=== PATIENT | female | born 1970 | race American Indian/Alaskan Native ===

== ENCOUNTER 2018-03-03 08:32 | Observation (INO) | payer BC ==
[2018-03-01 09:17] LABS: Eosinophils # (Auto) 0.1 K/mm3 (0.0-0.4); Eosinophils % (Auto) 2.1 % (0.0-4.3); Hematocrit 34.6 % (30.3-42.9); Hemoglobin 11.4 gm/dl (10.1-14.3); Lymphocytes # (Auto) 1.9 K/mm3 (1.2-5.4); Mean Corpuscular HGB Conc 33 % (30-34); Mean Corpuscular Hemoglobin 28 pg (28-32); Mean Corpuscular Volume 85 fl (79-97); Monocytes # (Auto) 0.4 K/mm3 (0.0-0.8); Monocytes % (Auto) 8.4 % (0.0-7.3); Platelet Count 267 K/mm3 (140-440); Red Blood Count 4.05 M/mm3 (3.65-5.03); Red Cell Distribution Width 14.8 % (13.2-15.2)
--- NOTE | 2018-03-01 12:22 | Anesthesia Consultation ---
Anesthesia Consult and Med Hx Date of service: 03/01/18 - Airway Anesthetic Teeth Evaluation: Good ROM Head & Neck: Adequate Mental/Hyoid Distance: Adequate Mallampati Class: Class I Intubation Access Assessment: Good - Pulmonary Exam CTA: Yes - Cardiac Exam Cardiac Exam: RRR - Pre-Operative Health Status ASA Pre-Surgery Classification: ASA2 Proposed Anesthetic Plan: General - Pulmonary Hx Sleep Apnea: Yes - Central Nervous System Hx Psychiatric Problems: No - Other Systems Hx Cancer: No
--- NOTE | 2018-03-03 07:17 | Anesthesia Day of Surgery ---
Anesthesia Day of Surgery - Day of Surgery Patient Examined: Yes Patient H&P Reviewed: Yes Patient is NPO: Yes
[~2018-03-03 08:32] MED LIST: DILAUDID IV PRN; GELFOAM POWDER 1GM MM ONE; LACTATED RINGERS 1,000 ML IV SCH; MARCAINE 0.5% INFILTRATI NR; NEOSPORIN GU IR ONE; PEPCID IV NR; THROMBIN (BOVINE) TP ONE; VERSED IV NR; XYLOCAINE 1% 20 mL INFILTRATI NR
[2018-03-03] MEDS ORDERED: DECADRON ONE ×2 (09:21→11:32)
[2018-03-03] MEDS ORDERED: MARCAINE 0.5% 30 ML INFILTRATI ONE (09:21)
[2018-03-03] MEDS ORDERED: SUBLIMAZE IV ONE (09:30)
--- NOTE | 2018-03-03 09:50 | History and Physical Report ---
History of Present Illness Date of examination: 03/03/18 Date of admission: 03/03/2018 Chief complaint: dysfunctional uterine bleeding History of present illness: 47-year-old 001 with a history of dysfunctional uterine bleeding. Pelvic ultrasound was performed with findings of endometrial polyp and also suggestive of a 1 cm myoma. The patient reports worsening of her menses where she experiences heavy bleeding with the passage of clots. The patient also complains of having dysmenorrhea during her menses. She has elected to undergo definitive surgical management. Past History Past Medical History: other (right and) Past Surgical History: no surgical history Social history: - Obstetrical History : 1 Para: 1 Hx # Term Pregnancies: 1 Number of Pregnancies: 0 Spontaneous Abortions: 0 Induced : 0 Number of Living Children: 1 Medications and Allergies Home Medications Medication Instructions Recorded Confirmed Last Taken Type Ferrous Sulfate [Iron] 325 mg PO BID 02/26/18 03/03/18 03/01/18 History Multivitamin Tab [Multiple Vitamin 1 each PO QDAY 02/26/18 03/03/18 03/01/18 History TAB (Theragran)] Norgestimate-Ethinyl Estradiol 1 each PO DAILY 02/26/18 03/03/18 03/01/18 History [Tri-Sprintec Tablet] Active Meds: Active Medications Bupivacaine HCl (Marcaine 0.5%) 20 ml INFILTRATI PREOP NR Stop: 03/03/18 16:00 Famotidine (Pepcid) 20 mg IV PREOP NR Stop: 03/03/18 23:59 Last Admin: 03/03/18 09:20 Dose: 20 mg Hydromorphone HCl (Dilaudid) 0.5 mg IV Q10MIN PRN PRN Reason: Pain , Severe (7-10) Stop: 03/03/18 14:00 Lactated Ringer's (Lactated Ringers) 1,000 mls @ 100 mls/hr IV DIRECT JALEESA Last Admin: 03/03/18 08:50 Dose: 100 mls/hr Lidocaine (Xylocaine 1% 20 Ml) 10 ml INFILTRATI PREOP NR Stop: 03/03/18 23:59 Midazolam HCl (Versed) 2 mg IV PREOP NR Stop: 03/03/18 23:59 Last Admin: 03/03/18 09:27 Dose: 2 mg Review of Systems All systems: negative Constitutional: fatigue Genitourinary: vaginal bleeding, pelvic pain - Vital Signs Vital signs: Vital Signs Temp Pulse Resp BP 98.6 F 72 18 124/80 03/01/18 09:00 03/01/18 09:00 03/01/18 09:00 03/01/18 09:00 Temp Pulse Resp BP Pulse Ox 98.6 F 72 18 124/80 03/01/18 09:00 03/01/18 09:00 03/01/18 09:00 03/01/18 09:00 - Physical Exam Breasts: Positive: deferred Cardiovascular: Regular rate Lungs: Positive: Clear to auscultation Abdomen: Positive: normal appearance Results Result Diagrams: 03/01/18 09:12 All other labs normal. Assessment and Plan - Patient Problems (1) Dysfunctional uterine bleeding Current Visit: Yes Status: Acute Plan to address problem: The patient is scheduled for a Robotic hysterectomy and bilateral salpingectomy (2) Endometrial polyp Current Visit: Yes Status: Acute
[2018-03-03] MEDS ORDERED: MARCAINE 0.5% INFILTRATI NR (10:00)
[2018-03-03] MEDS ORDERED: ANCEF/STERILE WATER 2 GM/20 ML 2 GM/20 ML SYRINGE IV SCH (10:00)
[2018-03-03] MEDS ORDERED: DIPRIVAN 10 MG/ML IV ONE (10:19)
[2018-03-03] MEDS ORDERED: ZEMURON IV ONE (10:20)
[2018-03-03] MEDS ORDERED: XYLOCAINE MPF 2% ONE (10:20)
[2018-03-03] MEDS ORDERED: DILAUDID ONE (10:20)
[2018-03-03] MEDS ORDERED: INTRALIPID 20% 250 ML IV ONE (10:24)
[2018-03-03] MEDS ORDERED: LACTATED RINGERS 1,000 ML ONE (11:00)
[2018-03-03] MEDS ORDERED: NEO SYNEPHRINE/NS Syringe(OR USE) IV ONE (11:09)
[2018-03-03] MEDS ORDERED: NACL 0.9% IR ONE ×2 (11:13)
[2018-03-03] MEDS ORDERED: NEOSPORIN GU IR ONE (11:13)
[2018-03-03] MEDS ORDERED: WATER FOR IRRIG STERILE IR ONE (11:13)
[2018-03-03] MEDS ORDERED: THROMBIN (BOVINE) TP ONE (11:14)
[2018-03-03] MEDS ORDERED: GELFOAM POWDER 1GM MM ONE (11:14)
[2018-03-03] MEDS ORDERED: ROBINUL ONE (11:26)
[2018-03-03] MEDS ORDERED: BLOXIVERZ ONE (11:26)
[2018-03-03] MEDS ORDERED: ZOFRAN ONE (11:28)
[2018-03-03] MEDS ORDERED: TORADOL ONE (11:29)
--- NOTE | 2018-03-03 11:58 | Operative Report ---
Operative Report Operative Report: Date of surgery: 03/03/2018 Preoperative diagnoses: Dysfunctional uterine bleeding and dysmenorrhea Postoperative diagnoses: Same as above Procedure: Robotic hysterectomy and bilateral salpingectomy Surgeon: Mitzi Alvarez M.D. Training Personnel Supervisor:Scott Glasgow Anesthesia: Gen. endotracheal anesthesia Estimated blood loss: 50 mL Pathology: Cervix, uterus, bilateral tubes Indication: 47-year-old 001 with a history of dysfunctional uterine bleeding and dysmenorrhea. The patient elected to undergo definitive surgical management. Procedure: The patient was taken to the operating room and given general endotracheal anesthesia without complication. She is prepped and draped in a normal sterile fashion. A bivalve speculum was placed in the patient's vagina and a single- tooth tenaculum placed on the anterior lip of the cervix. The uterus was sounded with the uterine sound. A Kaptur uterine manipulator was placed in the bivalve speculum was then removed. Attention was then turned to the patient's abdomen where a millimeter supra umbilical skin incision was then made. A Veress needle was placed and peritoneal entry was verified water-filled syringe. Insufflation of the peritoneal cavity was performed with CO2 gas. The 12 mm trocar was then placed under direct visualization. An additional 8 mm trocar was placed on the patient's left and right lateral side just opposite of the supraumbilical trocar. An additional 5 mm right lateral trocar was then placed as the accessory port. The patient was then placed in steep Trendelenburg. The da Karla robot was then engaged. A fenestrated forcep was placed in arm 2 and a vessel sealer was placed in arm 1. The surgeon then transferred to the surgical console. General survey revealed evidence of a normal uterus tubes and ovaries. The mesosalpinx was then isolated on the right. The vessel sealer was used to coagulate the mesosalpinx which was then transected. The tube was transected from the ovary. The tubo-ovarian ligament was then coagulated and transected. The round ligament was then coagulated and transected also. The vesicouterine peritoneum was then entered from the patient 's right side. The uterine vessels were then coagulated with the vessel sealer. The vessels were then transected . Attention was then turned to the patient's left side where the tubo-ovarian ligament and mesosalpinx were again isolated coagulated and transected. The vesical peritoneum was then entered from the left and joined in the midline. Peritoneum was reflected off of the lower uterine segment. Uterine vessels were then coagulated and then transected. The blood supply to the uterus was adequately contained, a posterior colpotomy was made. The V care ring was visualized. Posterior colpotomy was created with the monopolar scissors. The incision was continued circumferentially until anterior colpotomy was made. The cervix and uterus were amputated from the vaginal cuff. The uterus was then removed along with the tubes bilaterally through the vagina and a warm laparotomy sponge was placed and maintain the pneumoperitoneum. The vaginal cuff was then closed in a running fashion with V lock suture. Irrigation of the pelvis was performed. Gelfoam with thrombin and Td were applied to the incision. The supraumbilical 12 mm trocar site was closed with the Felipe Whiteside device. The skin was then reapproximated with 4-0 Monocryl. The tissue was sent to pathology which included the cervix and uterus. The patient was then successfully extubated. She was then taken to the recovery room in stable condition. All sponge laps and needle counts were correct x2.
[2018-03-03] MEDS ORDERED: MOTRIN PO PRN (12:00)
[2018-03-03] MEDS ORDERED: MILK OF MAGNESIA PO PRN (12:00)
[2018-03-03] MEDS ORDERED: MORPHINE PCA 30MG/30ML IV SCH ×2 (12:00→14:32)
[2018-03-03] MEDS ORDERED: PERCOCET 5/325 PO PRN (12:00)
[2018-03-03] MEDS ORDERED: ZOFRAN IV PRN (12:00)
[2018-03-03] MEDS ORDERED: TYLENOL PO PRN (12:00)
--- NOTE | 2018-03-03 14:28 | Post Anesthesia Evaluation ---
- Post Anesthesia Evaluation Patient Participated: Yes Airway Patent: Yes Stable Respiratory Function: Yes Nausea/Vomiting: No Temp > 96.8F: Yes Pain Manageable: Yes Adequeate Hydration: Yes Anesthesia Complications: No
[2018-03-03] MEDS ORDERED: NARCAN 0.4 MG/1 ML IV PRN (14:32)
[2018-03-03] MEDS: D5LR 1,000 ML IV SCH (21:07)
[2018-03-03] MEDS: TORADOL IV SCH (21:08)
[2018-03-04] MEDS: TORADOL IV SCH ×2 (04:26→12:48)
[2018-03-04 05:39] LABS: Hematocrit 32.7 % (30.3-42.9); Hemoglobin 10.5 gm/dl (10.1-14.3)
[2018-03-04] MEDS: D5LR 1,000 ML IV SCH (07:54)
--- NOTE | 2018-03-04 08:42 | Progress Note ---
Assessment and Plan A/P POD #1 s/p robotic hysterectomy doing well tolerating diet pain controlled VSS d/c home with f/u with Dr. Cross in 4 weeks Subjective - Subjective Date of service: 03/04/18 Principal diagnosis: s/p robotic hysterectomy Patient reports: appetite normal, voiding normally, pain well controlled, flatus , ambulating normally Objective - Vital Signs Latest vital signs: Vital Signs Temp Pulse Resp BP BP Pulse Ox 03/04/18 04:56 97.9 F 64 20 102/53 97 03/04/18 00:17 98.6 F 73 20 104/45 98 03/03/18 20:30 98.0 F 78 20 119/70 96 03/03/18 17:45 18 03/03/18 15:45 18 03/03/18 13:45 97.8 F 79 16 121/78 121/78 97 03/03/18 13:15 97.7 F 81 18 126/76 100 03/03/18 13:00 75 18 125/74 97 03/03/18 12:45 92 H 20 130/83 98 03/03/18 12:30 68 20 128/71 100 03/03/18 12:25 80 20 131/74 100 03/03/18 12:21 103 H 10 L 125/77 100 03/03/18 10:30 98.1 F 77 20 122/78 100 03/03/18 09:38 89 16 127/79 100 03/03/18 09:32 78 16 126/86 100 03/03/18 09:28 79 19 131/82 100 03/03/18 09:23 72 16 124/75 100 Intake and Output 03/03/18 03/04/18 03/04/18 23:59 07:59 15:59 Intake Total 720 1240 Output Total 600 1600 Balance 120 -360 Intake: IV 1000 D5lr 1,000 ml @ 125 mls/ 1000 hr IV DIRECT JALEESA Rx#: [id number] Oral 720 240 Output: Urine 600 1600 Indwelling Catheter 600 1600 Other: Total, Intake Amount 360 120 Total, Output Amount 600 800 Voiding Method Indwelling Catheter - Exam Breasts: Present: normal Cardiovascular: Present: Regular rate, Normal S1 Lungs: Present: Clear to auscultation, Normal air movement Abdomen: Present: normal appearance, soft, normal bowel sounds. Absent: distention, tenderness, guarding Vulva: both: normal Extremities: Present: normal Deep Tendon Reflex Grade: Normal +2 Incision: Present: normal, dry, intact
--- NOTE | 2018-03-04 08:44 | Discharge Summary ---
Providers - Providers Date of Admission: 03/03/18 12:00 Date of discharge: 03/04/18 Attending physician: VICENTE YEAGER Hospitalization Reason for admission: other (robotic hysterectomy ) Procedure: other (robotic hysterectomy ) Incision: normal, dry, intact Hospital course: Patient had a robotic hysterectomy. Post course uneventful. Tolerating diet. + flatus. pain well controlled. d/c home with f/u with Dr. Cross Condition at discharge: Good Disposition: DC-01 TO HOME OR SELFCARE Plan - Discharge Medications Prescriptions: Docusate Sodium [Colace] 100 mg PO BID PRN #60 capsule PRN Reason: Constipation Ibuprofen [Motrin] 800 mg PO Q8HR PRN #60 tablet PRN Reason: Pain Oxycodone HCl/Acetaminophen [Percocet 7.5/325 mg] 1 each PO Q6HR PRN #45 tablet PRN Reason: Pain - Provider Discharge Summary Activity: routine, no sex for 6 weeks, no strenuous exercise Diet: routine Instructions: routine Additional instructions: [] Smoking cessation referral if applicable(refer to patient education folder for contact #) [] Refer to [facility] Booklet Call your doctor immediately for: * Fever > 100.5 * Heavy vaginal bleeding ( >1 pad per hour) * Severe persistent headache * Shortness of breath * Reddened, hot, painful area to leg or breast * Drainage or odor from incision. * Keep incision clean and dry at all times and follow doctor's instructions regarding bathing/showering - Follow up plan Follow up: JAY VELOZ [Other] - 7 Days VICENTE YEAGER MD [Staff Physician] - 03/25/18
[2018-03-04] MEDS ORDERED: FEOSOL PO ONE ×2 (10:00→12:44)
[2018-03-04 16:51] VITALS: BP 121/67
== END 2018-03-04 16:00 | disposition home or self-care (01) ==
LOC: OR 08:32 → OB 12:00
PROVIDERS: ADMIT Obstetrics & Gynecology; ATTEND Obstetrics & Gynecology
DX: N93.8 Other specified abnormal uterine and vaginal bleeding (principal); N84.0 Polyp of corpus uteri; N94.6 Dysmenorrhea, unspecified; G47.30 Sleep apnea, unspecified
CPT/HCPCS: 36415; 58552; 64450; 84703; 85014; 85018; 85025; 86850; 86900; 86901; 88307; 96374; 96375; 96376; A4217; A4649; G0378; J0690; J1100; J1170; J1885; J2250; J2270; J2370; J2405; J2704; J2710; J3010; J7120; J7121; S2900